=== PATIENT | male | born 1975 | race Caucasian/White ===

== ENCOUNTER 2023-03-15 10:41 | Emergency (ER) | payer OTHER, SELFPAY ==
[2023-03-15 10:50] VITALS: BP 160/110; PULSE 88; RESP 20; TEMP 36.8; O2SAT 95; BMI 42.0
--- NOTE | 2023-03-15 10:58 | XR_ITS ---
The [address] [address] Patient Name: NILESH SANTACRUZ MRN: [id number] date: 1975 Sex: M Assigned Patient Location: ER Current Patient Location: ER Accession/Order Number: [id number] Exam Date: 03/15/2023 11:05 Report Date: 03/15/2023 11:28 At the request of: SHIVAM GREENE Procedure: XR hip RT 2V w/ pelvis PROCEDURE: XR hip RT 2V w/ pelvis HISTORY: pain ; acute right hip pain, no known injury COMPARISON: None. FINDINGS: BONES:No fracture, acute abnormality, or significant arthropathy. SOFT TISSUES:No visible soft tissue swelling. EFFUSION:None visible. OTHER: Irregular density projecting over right sacroiliac joint suspected to be overlying artifact. IMPRESSION: 1. No acute bone abnormality or suspicious findings. 2. Minimal degenerative changes. Electronically authenticated by: GUILLERMO CONNER Date: 03/15/2023 11:28
[2023-03-15 11:35] VITALS: BP 128/78
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
--- NOTE | 2023-03-15 12:16 | PC.NURSE ---
Obtained a Orthopedic follow up appt with [facility] and information for a follow up with [facility] in [facility] and will be given to pt at d/c with prescriptions and work note as requested by ER . Informed pt that his ride home will need to be present at the time of medication administration. pt verbalized understanding and call light in reach
[2023-03-15] MEDS: PREDNISONE 20 MG TABLET PO (12:34)
[2023-03-15] MEDS: HYDROMORPHONE HCL 2 MG/ML VIAL IM (12:35)
--- NOTE | 2023-03-15 12:50 | PC.NURSE ---
d/c instructions complete, pt and verified understanding. prescriptions and work note provided. Told pt to return to ER for any problems or concerns. W/c to the car and pt used personal cane for assistance with transfer.
== END 2023-03-15 12:51 | disposition home or self-care (01) ==
PROVIDERS: Emergency Provider Emergency Medicine Emergency Medical Services
DX: M25.551 Pain in right hip (principal)
CPT/HCPCS: 73502; 96374; 99284; J1170

== ENCOUNTER 2023-07-01 20:07 | Emergency (ER) | payer OTHER, SELFPAY ==
[2023-07-01] VITALS (8 sets, daily range): BP systolic 97–111; BP diastolic 62–72; PULSE 81–95; RESP 15–28; TEMP 36.6; O2SAT 98
--- NOTE | 2023-07-01 20:18 | XR_ITS ---
[address] [address] Patient Name: NILESH SANTACRUZ MRN: [id number] date: 1975 Sex: M Assigned Patient Location: ER Current Patient Location: ER Accession/Order Number: [id number] Exam Date: 07/01/2023 20:20 Report Date: 07/01/2023 21:24 At the request of: YOLA JOSEPH Procedure: XR wrist RT min 3V EXAM: XR wrist RT min 3V HISTORY: Following fall COMPARISON: None. TECHNIQUE: 3 views FINDINGS: IMPRESSION: Comminuted volar displaced and volar angulated intra-articular fracture of the distal radius. Associated soft tissue edema. Large radiocarpal joint effusion. Orthopedic surgical intervention is necessary Electronically authenticated by: DEONDRE ROMERO Date: 07/01/2023 21:24
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
--- NOTE | 2023-07-01 20:24 | ECG_ITS ---
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
--- NOTE | 2023-07-01 21:43 | ECG_ITS ---
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
[2023-07-01 21:51] LABS: Basophils Absolute Auto 0.1 10^3/uL (0.0-0.1); Basophils Percent Auto 0.5 % (0.2-2.0); Eosinophils Absolute Auto 0.1 10^3/uL (0.0-0.7); Eosinophils Percent Auto 0.5 % (0.9-7.0); Hematocrit 52.4 % (42.0-54.0); Hemoglobin 17.4 g/dL (14.0-18.0); Immature Granulocytes Abs Auto 0.08 10^3/uL (0.00-0.03); Immature Granulocytes Pct Auto 0.8 % (0.0-0.5); Lymphocytes Percent Auto 19.6 % (20.5-60.0); Mean Corpuscular HGB Conc 33.2 g/dL (29.9-35.2); Mean Corpuscular Hemoglobin 30.9 pg (25.9-34.0); Mean Corpuscular Volume 93.1 fL (80.0-94.0); Mean Platelet Volume 10.8 fL (9.5-13.5); Monocytes Absolute Auto 0.7 10^3/uL (0.3-0.8); Monocytes Percent Auto 6.8 % (1.7-12.0); Neutrophils Absolute Auto 7.5 10^3/uL (1.4-6.5); Neutrophils Percent Auto 71.8 % (43.0-75.0); Platelet Count 183 10^3/uL (150-450); Red Blood Count 5.63 10^6/uL (4.70-6.10); White Blood Count 10.4 10^3/uL (4.0-11.0)
[2023-07-01 22:03] LABS: Ethanol 169 mg/dL
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
[2023-07-01] MEDS: 0.9 % SODIUM CHLORIDE 1,000 ML 1000 ML IV (22:17)
[2023-07-01] MEDS: AMPICILLIN SODIUM/SULBACTAM NA 1.5 GM in 0.9 % SODIUM CHLORIDE 50 ML IV (22:18)
[2023-07-01] MEDS: ONDANSETRON PF 4 MG/2 ML VIAL IV (22:21)
[2023-07-01 22:25] LABS: Alanine Aminotransferase 24 U/L (16-63); Albumin Globulin Ratio 1.3; Albumin Level 4.2 g/dL (3.4-5.0); Alkaline Phosphatase 52 U/L (46-116); Anion Gap 14.4; Aspartate Amino Transferase 24 U/L (15-37); BUN Creatinine Ratio 9.2; Bilirubin Total 0.5 mg/dL (0.2-1.0); Calcium 8.4 mg/dL (8.5-10.1); Carbon Dioxide 24.1 mmol/L (21.0-32.0); Chloride 100 mmol/L (98-107); Estimated GFR (African America 59 (>=60); Estimated GFR (Non-African Ame 49 (>=60); Globulin 3.2 g/dL; Glucose 80 mg/dL (74-106); Potassium 3.5 mmol/L (3.5-5.1); Sodium 135 mmol/L (136-145); Total Protein 7.4 g/dL (6.4-8.2)
[2023-07-01] MEDS: ACETAMINOPHEN 500 MG TABLET 1000 MG PO (23:19)
== END 2023-07-02 | disposition short-term general hospital (02) ==
PROVIDERS: Physician Assistant; Emergency Provider Student in an Organized Health Care Education/Training Program
DX: S02.85XA Fracture of orbit, unspecified, initial encounter for closed fracture (principal); S52.571A Other intraarticular fracture of lower end of right radius, initial encounter for closed fracture; S02.40FA Zygomatic fracture, left side, initial encounter for closed fracture; S02.40DA Maxillary fracture, left side, initial encounter for closed fracture; R04.0 Epistaxis; S06.0X1A Concussion with loss of consciousness of 30 minutes or less, initial encounter; V28.01XA Electric (assisted) bicycle driver injured in noncollision transport accident in nontraffic accident, initial encounter
CPT/HCPCS: 36415; 70450; 70486; 71045; 72125; 73110; 80053; 80320; 84484; 85025; 93005; 96361; 96365; 96375; 99285

== ENCOUNTER 2025-04-11 11:37 | Emergency (ER) | payer BC, SELFPAY ==
[2025-04-11 11:41] VITALS: BP 170/98; PULSE 95; TEMP 36.8; O2SAT 92; BMI 39.5
--- NOTE | 2025-04-11 12:01 | ED_ITS ---
HPI HPI - General Adult General Chief complaint: Extremity Problem, Nontraumatic Stated complaint: LOWER EXTREMITY PAIN Time Seen by Provider: 04/11/25 11:43 Source: patient Mode of arrival: Wheelchair History of Present Illness HPI narrative: 50-year-old male presents for right calf pain and swelling. He states it has been that way for a few days and gives no history of any injury. He is concerned that he might have another blood clot. He had one about 3 years ago and was taken off of his blood thinners about 2 years ago. No chest pain or shortness of breath. He does not have symptoms in the left leg. He is not on blood thinners. Related Data Previous Rx's ?Medication ?Instructions ?Recorded acetaminophen 300 mg-codeine 30 mg 1 tab PO Q6H PRN pa in 5 days #20 04/11/25 tablet tabs ibuprofen 800 mg tablet 800 mg PO Q8H PRN pain #20 t abs 04/11/25 Allergies Allergy/AdvReac Type Severity Reaction Status Date / Time aspirin AdvReac Mild nausea Verified 07/01/23 20:31 codiene AdvReac Mild nausea Uncoded 07/01/23 20:31 Review of Systems ROS Narrative A ten point review of systems is negative except as noted above. PFSH PFSH Social History Little interest or pleasure in doing things: not at all Feeling down, depressed, or hopeless: not at all Exam Narrative Exam Narrative: Nurses note and vital signs reviewed and patient is not hypoxic. General: The patient appears well and in no apparent distress. Patient is resting comfortably on cart. Skin: Warm, dry, no pallor noted. There is no rash noted. Head: Normocephalic, atraumatic Eye: Normal conjunctiva, no drainage Ears, Nose, Mouth, and Throat: oral mucosa is moist. Nares patent. Cardiovascular: Regular Rate and Rhythm Respiratory: Patient is in no distress, no accessory muscle use, lungs are clear to auscultation, no wheezing, rales or rhonchi Back: non-tender GI: Soft and nontender Musculoskeletal: The right calf is significantly swollen compared to the contralateral. Bilateral dorsalis pedis pulses are 2+. Capillary refill is brisk. Neurological: A&O, normal speech Psychiatric: Cooperative Constitutional Vital Signs, click to edit/add: Last Vital Signs Temp 98.3 F 04/11/25 11:41 Pulse 89 04/11/25 14:23 Resp 18 04/11/25 14:23 BP 141/84 04/11/25 14:23 Pulse Ox 93 L 04/11/25 14:23 O2 Del Method Room Air 04/11/25 11:41 Course Vital Signs Vital signs: Vital Signs Temperature 98.3 F 04/11/25 11:41 Pulse Rate 95 H 04/11/25 11:41 Respiratory Rate 24 H 04/11/25 11:41 Blood Pressure 170/98 H 04/11/25 11:41 Pulse Oximetry 92 L 04/11/25 11:41 Oxygen Delivery Method Room Air 04/11/25 11:41 Temperature 98.3 F 04/11/25 11:41 Pulse Rate 89 04/11/25 14:23 Respiratory Rate 18 04/11/25 14:23 Blood Pressure 141/84 04/11/25 14:23 Pulse Oximetry 93 L 04/11/25 14:23 Oxygen Delivery Method Room Air 04/11/25 11:41 Medical Decision Making MDM Narrative Medical decision making narrative: Doppler shows no evidence of DVT and CT shows no mass. They suggested some edema. I have no clinical suspicion of cellulitis in this patient. He will be treated symptomatically with pain medication. He was recommended rest and elev ation. Treatment diagnosis and follow-up were discussed with the patient. Differential Diagnosis Differential Diagnosis: DVT, abscess, muscle injury Lab Data Lab results reviewed: Yes I reviewed the patient's lab results Labs: Lab Results 04/11/25 Range/Units 12:24 WBC 6.2 (4.0-11.0) 10^3/uL RBC 5.98 (4.70-6.10) 10^6/uL Hgb 18.0 (14.0-18.0) g/dL Hct 53.3 (42.0-54.0) % MCV 89.1 (80.0-94.0) fL MCH 30.1 (25.9-34.0) pg MCHC 33.8 (29.9-35.2) g/dL RDW 12.6 (11.0-15.0) % Plt Count 188 (150-450) 10^3/uL MPV 9.9 (9.5-13.5) fL Neut % (Auto) 62.6 (43.0-75.0) % Lymph % (Auto) 29.0 (20.5-60.0) % [place] % (Auto) 6.0 (1.7-12.0) % Eos % (Auto) 1.3 (0.9-7.0) % Baso % (Auto) 0.5 (0.2-2.0) % Neut # (Auto) 3.9 (1.4-6.5) 10^3/uL Lymph # (Auto) 1.8 (1.2-3.8) 10^3/uL [place] # (Auto) 0.4 (0.3-0.8) 10^3/uL Eos # (Auto) 0.1 (0.0-0.7) 10^3/uL Baso # (Auto) 0.0 (0.0-0.1) 10^3/uL Abs Immat Gran (auto) 0.04 H (0.00-0.03) 10^3/uL Imm/Tot Granulo (auto) 0.6 H (0.0-0.5) % PT 10.7 (9.0-11.6) sec INR 1.01 APTT 25.1 (22.3-36.2) sec Sodium 134 L (136-145) mmol/L Potassium 3.8 (3.5-5.1) mmol/L Chloride 100 (98-107) mmol/L Carbon Dioxide 23.0 (21.0-32.0) mmol/L Anion Gap 14.8 BUN 17.0 (7.0-18.0) mg/dL Creatinine 1.18 (0.70-1.30) mg/dL Est GFR ( Amer) >60 (>=60 mL/min/1.73m^2) Est GFR (Non-Af Amer) >60 (>=60 mL/min/1.73m^2) BUN/Creatinine Ratio 14.4 Glucose 137 H (74-106) mg/dL Calcium 8.8 (8.5-10.1) mg/dL Imaging Data Doppler, CT: Radiologist's impression: ITS Impressions Chest X-Ray 04/11/25 13:16 IMPRESSION: No acute process. Impression dictated by: Cody Rick M.D. 04/11/2025 1:54 PM Dictation Location: [place] [facility] Electronically authenticated by: [id number] Y Date: 04/11/2025 13:[address] 04/11/25 13:16 IMPRESSION: Subcutaneous fatty stranding suggesting edema. May represent cellulitis. No fluid collection. No obvious fascia or muscular abnormality. No subcutaneous air. Unremarkable bony structures. Impression dictated by: Cody Rick M.D. 04/11/2025 3:01 PM Dictation Location: [place] [facility] Electronically authenticated by: [id number] Y Date: 04/11/2025 15:01 ECG Data Attestation: I personally reviewed and interpreted this ECG as follows: (EKG on my interpretation shows sinus rhythm with a rate of 89 and no acute) Discharge Plan Discharge Chief Complaint: Extremity Problem, Nontraumatic Clinical Impression: Right leg pain Patient Disposition: Home, Self-Care Time of Disposition Decision: 15:12 Condition: Good Mode of Transportation: Private Vehicle Prescriptions / Home Meds: New acetaminophen-codeine 300-30 mg tablet 1 tab PO Q6H PRN (Reason: pain) 5 Days Qty: 20 0RF ibuprofen 800 mg tablet 800 mg PO Q8H PRN (Reason: pain) Qty: 20 0RF Print Language: Cameroonian Instructions: Leg Pain (ED) Referrals: Karina Alexander NP [Primary Care Provider] - 1 week
--- NOTE | 2025-04-11 12:04 | ECG_ITS ---
[facility] Test Date: 2025-04-11 Pat Name: NILESH SANTACRUZ Department: Room: - Gender: Male [employer]: : 1975 Requested By: [id number] Order Number: [id number] Reading MD: AB CONTRERAS Measurements Intervals [place] Rate: 89 P: 66 [place]: 166 QRS: 77 QRSD: 100 T: 16 QT: 350 QTc: 397 Interpretive Statements 1100 Sinus rhythm 2420 RSR (QR) in lead V1/V2, consistent with right ventricular conduction delay 4068 Nonspecific [place] abnormality 9130 borderline ECG Compared to ECG 07/01/2023 21:46:26 No significant changes Electronically Signed On 04-12-2025 9:59:48 EDT by AB CONTRERAS
[2025-04-11 12:27] VITALS: BP 147/68; PULSE 90; O2SAT 91
[2025-04-11 12:30] LABS: Hematocrit 53.3 % (42.0-54.0); Hemoglobin 18.0 g/dL (14.0-18.0); Immature Granulocytes Abs Auto 0.04 10^3/uL (0.00-0.03); Immature Granulocytes Pct Auto 0.6 % (0.0-0.5); Lymphocytes Absolute Auto 1.8 10^3/uL (1.2-3.8); Mean Corpuscular HGB Conc 33.8 g/dL (29.9-35.2); Mean Corpuscular Hemoglobin 30.1 pg (25.9-34.0); Mean Corpuscular Volume 89.1 fL (80.0-94.0); Platelet Count 188 10^3/uL (150-450); Red Blood Count 5.98 10^6/uL (4.70-6.10); White Blood Count 6.2 10^3/uL (4.0-11.0)
[2025-04-11 12:38] LABS: Anion Gap 14.8; Blood Urea Nitrogen 17.0 mg/dL (7.0-18.0); Calcium 8.8 mg/dL (8.5-10.1); Carbon Dioxide 23.0 mmol/L (21.0-32.0); Chloride 100 mmol/L (98-107); Estimated GFR (African America >60 (>=60 mL/min/1.73m^2); Estimated GFR (Non-African Ame >60 (>=60 mL/min/1.73m^2); Glucose 137 mg/dL (74-106); Potassium 3.8 mmol/L (3.5-5.1); Sodium 134 mmol/L (136-145)
[2025-04-11 12:46] LABS: INR 1.01; Partial Thromboplastin Time 25.1 sec (22.3-36.2); Prothrombin Time 10.7 sec (9.0-11.6)
--- NOTE | 2025-04-11 13:16 | XR_ITS ---
[facility] [place] [id number] Patient Name: NILESH SANTACRUZ MRN: [id number] date: 1975 Sex: M Assigned Patient Location: ER Current Patient Location: ER Accession/Order Number: [id number] Exam Date: 04/11/2025 13:52 Report Date: 04/11/2025 13:54 At the request of: SARITHA TALLEY MD Procedure: XR chest 1V Plain film chest Single view HISTORY: Shortness of breath COMPARISON: 07/01/2023 FINDINGS: SUPPORT DEVICES: None POSTSURGICAL CHANGES: None HEART: Within normal limits PULMONARY DEREJE: Within normal limits MEDIASTINUM: Unremarkable LUNGS AND PLEURA: No acute lung process, pleural effusion or pneumothorax identified. BONY STRUCTURES: Intact ADDITIONAL FINDINGS None XR/XR chest 1V IMPRESSION: No acute process. Impression dictated by: Cody Rick M.D. 04/11/2025 1:54 PM Dictation Location: [place] [address] Electronically authenticated by: [id number] Y Date: 04/11/2025 13:54
--- NOTE | 2025-04-11 13:16 | CT_ITS ---
[address] [address] Patient Name: NILESH SANTACRUZ MRN: [id number] date: 1975 Sex: M Assigned Patient Location: ER Current Patient Location: ER Accession/Order Number: [id number] Exam Date: 04/11/2025 14:56 Report Date: 04/11/2025 15:01 At the request of: SARITHA TALLEY MD Procedure: CT lower leg RT w con CT right lower leg with contrast TECHNIQUE: 100 cc of Omnipaque 300The CT exam was performed using one or more the following dose reduction techniques: Automated exposure control, adjustment of the MA and/or Kv according to patient size, or use of the iterative reconstruction technique. COMPARISON: Bilateral lower extremity Doppler ultrasound. No DVT. HISTORY: Right calf swelling Subcutaneous fatty stranding. No fluid collection. No skin thickening. Adequate appearing fascial planes. No gross muscular abnormality. No hematoma. Intact bony structures. No acute bony erosion or fracture. CT/CT lower leg RT w con IMPRESSION: Subcutaneous fatty stranding suggesting edema. May represent cellulitis. No fluid collection. No obvious fascia or muscular abnormality. No subcutaneous air. Unremarkable bony structures. Impression dictated by: Cody Rick M.D. 04/11/2025 3:01 PM Dictation Location: [place] [address] Electronically authenticated by: [id number] Y Date: 04/11/2025 15:01
[2025-04-11 13:24] VITALS: BP 129/84; PULSE 85; O2SAT 93
[2025-04-11 14:23] VITALS: BP 141/84; PULSE 89; O2SAT 93
== END 2025-04-11 15:42 | disposition home or self-care (01) ==
PROVIDERS: Emergency Provider Emergency Medicine; PCP Nurse Practitioner Family
DX: M79.604 Pain in right leg (principal); Z86.718 Personal history of other venous thrombosis and embolism; R22.41 Localized swelling, mass and lump, right lower limb
CPT/HCPCS: 36415; 71045; 73701; 80048; 85025; 85610; 85730; 93005; 93970; 99285; Q9967